=== PATIENT | male | born 2000 | race Two or more races ===

== ENCOUNTER 2021-03-09 14:16 | Emergency (ER) | payer MEDICAID ==
[~2021-03-09] VITALS: Ht 175.3 cm; Wt 65.8 kg
[2021-03-09] MEDS ORDERED: ONDANSETRON HCL 4 MG/2 ML VIAL IV ONE (14:30)
[2021-03-09] MEDS ORDERED: SODIUM CHLORIDE 0.9% 500 ML IV ONE (14:30)
[2021-03-09 14:59] LABS: Basophils # (auto) 0 10 ^3/uL (0-0.2); Basophils % (auto) 0.3 % (0.0-2.0); Eosinophils # (auto) 0 10 ^3/uL (0-0.8); Eosinophils % (auto) 0.1 % (0.0-7.0); Hematocrit 33.2 % (41.0-53.0); Hemoglobin 11.8 g/dL (13.5-17.5); Lymphocytes # (auto) 1.4 10 ^3/uL (0.4-5.4); Lymphocytes % (auto) 19.8 % (10.0-50.0); Mean Corpuscular Hemoglobin 32.2 pg (28.0-32.0); Mean Corpuscular Hgb Conc. 35.4 g/dL (32.0-36.0); Mean Corpuscular Volume 91.1 fL (80.0-100.0); Monocytes # (auto) 0.4 10 ^3/uL (0-1.3); Monocytes % (auto) 5.1 % (0.0-12.0); Neutrophils # (auto) 5.4 10 ^3/uL (1.6-8.6); Neutrophils % (auto) 74.7 % (37.0-80.0); Red Blood Cells 3.65 10^6/uL (4.5-5.90); White Blood Cell 7.2 10^3/uL (4.4-10.8)
[2021-03-09 15:17] LABS: Albumin 3.2 g/dL (3.4-5.0); Calcium 8.3 mg/dL (8.5-10.1); Potassium 3.8 mmol/L (3.5-5.1)
[2021-03-09 15:20] LABS: BUN/Creatinine Ratio 26.5; Bilirubin, Total 0.2 mg/dL (0.2-1.0); Total Protein 7.4 g/dL (6.4-8.2)
[2021-03-10 17:00] VITALS: BP 97/65
== END 2021-03-10 16:32 | disposition home or self-care (01) ==
LOC: ER 14:16 → EDBD 14:16 → ER 03-10 16:32
DX: B34.9 Viral infection, unspecified (principal); R51.9 Headache, unspecified; Z20.822 Contact with and (suspected) exposure to COVID-19
CPT/HCPCS: 36415; 71045; 80053; 83735; 85025; 87426; 96361; 96374; 99285; J2405; J7040

== ENCOUNTER 2021-08-30 12:05 | Inpatient (IN) | payer MEDICAID ==
[~2021-08-30] VITALS: Ht 182.9 cm; Wt 72.0 kg
[2021-08-30] MEDS: BUDESONIDE (INHALATION) 180 MCG IH IN SCH (07:14)
[2021-08-30 13:51] LABS: Basophils # (auto) 0.1 10 ^3/uL (0-0.2); Basophils % (auto) 1.1 % (0.0-2.0); Eosinophils # (auto) 0 10 ^3/uL (0-0.8); Eosinophils % (auto) 0.3 % (0.0-7.0); Hematocrit 37.4 % (41.0-53.0); Hemoglobin 12.5 g/dL (13.5-17.5); Lymphocytes # (auto) 0.3 10 ^3/uL (0.4-5.4); Lymphocytes % (auto) 3.4 % (10.0-50.0); Mean Corpuscular Hemoglobin 31.2 pg (28.0-32.0); Mean Corpuscular Hgb Conc. 33.4 g/dL (32.0-36.0); Mean Corpuscular Volume 93.5 fL (80.0-100.0); Monocytes # (auto) 0.8 10 ^3/uL (0-1.3); Monocytes % (auto) 9.5 % (0.0-12.0); Neutrophils # (auto) 7.5 10 ^3/uL (1.6-8.6); Neutrophils % (auto) 85.7 % (37.0-80.0); Red Cell Distribution Width 12.6 % (11.8-14.3); White Blood Cell 8.8 10^3/uL (4.4-10.8)
[2021-08-30 14:17] LABS: Albumin 3.7 g/dL (3.4-5.0); Calcium 9.2 mg/dL (8.5-10.1); Potassium 4.2 mmol/L (3.5-5.1)
[2021-08-30 14:27] LABS: BUN/Creatinine Ratio 15.7; Bilirubin, Total 0.2 mg/dL (0.2-1.0); Total Protein 8.4 g/dL (6.4-8.2)
[2021-08-30] MEDS ORDERED: MORPHINE SULFATE INJECTION 2 MG/ML SYRG IV PRN ×3 (17:45→20:45)
[2021-08-30] MEDS ORDERED: NITROGLYCERIN 0.4 MG SL TAB SL PRN ×2 (17:45→20:45)
[2021-08-30] MEDS ORDERED: AZITHROMYCIN 500MG/ 250ML 250 ML IV ONE (18:45)
[2021-08-30] MEDS ORDERED: cefTRIAXone 1GM/50ML D5W 50 ML IV ONE (18:45)
[2021-08-30] MEDS ORDERED: SODIUM CHLORIDE 0.9% 1,000 ML IV ONE ×2 (18:45)
[2021-08-30] MEDS ORDERED: HYDROcodone-ACET 5/325MG TAB PO PRN (20:45)
[2021-08-30] MEDS ORDERED: DOCUSATE SOD 100 MG CAP PO PRN (20:45)
[2021-08-30] MEDS ORDERED: ALBUTEROL SULF HFA 90MCG INH 200DOSE IN PRN (20:45)
[2021-08-30] MEDS ORDERED: FAMOTIDINE (10MG/ML) 2ML VL IV ONE (20:45)
[2021-08-30] MEDS ORDERED: Jevity 1.2 Cal/Fiber 1 Liter GT SCH (20:45)
[2021-08-30] MEDS ORDERED: ACETAMINOPHEN 500 MG TAB PO PRN (20:45)
[2021-08-30] MEDS ORDERED: ONDANSETRON HCL 4 MG/2 ML VIAL IV PRN (20:45)
[2021-08-30] MEDS ORDERED: LORazepam 0.5 MG TAB PO PRN (20:45)
[2021-08-30] MEDS ORDERED: ALUM & MAG HYDROX-SIMETH LIQ(MAALOX) 30 ML PO PRN (20:45)
[2021-08-30] MEDS ORDERED: SODIUM CHLORIDE 0.9% 1,000 ML IV SCH (21:00)
[2021-08-30] MEDS: ENOXAPARIN SOD 40 MG/0.4 ML SYRINGE SC SCH (22:13)
[2021-08-30 22:50] LABS: Albumin 3.3 g/dL (3.4-5.0); Calcium 8.1 mg/dL (8.5-10.1); Magnesium 2.1 mg/dL (1.6-2.6); Potassium 3.4 mmol/L (3.5-5.1)
[2021-08-30 22:56] LABS: BUN/Creatinine Ratio 15.5; Bilirubin, Total 0.2 mg/dL (0.2-1.0); CRP High Sensitivity 0.93 mg/dL (< 0.3); Total Protein 7.5 g/dL (6.4-8.2)
[2021-08-30 23:02] LABS: Thyroid Stimulating Hormone 0.52 uIU/mL (0.358-3.74)
[2021-08-30 23:06] LABS: Cholesterol 143 mg/dL (< 200)
[2021-08-30 23:09] LABS: HDL Cholesterol 50 mg/dL (40-59); LDL Cholesterol 81 mg/dL (< 100); Triglycerides 59 mg/dL (< 150)
[2021-08-30 23:15] VITALS: BP 119/71
[2021-08-30 23:52] LABS: Basophils # (auto) 0 10 ^3/uL (0-0.2); Basophils % (auto) 0.3 % (0.0-2.0); Eosinophils # (auto) 0 10 ^3/uL (0-0.8); Hematocrit 32.7 % (41.0-53.0); Lymphocytes # (auto) 0.9 10 ^3/uL (0.4-5.4); Lymphocytes % (auto) 11.6 % (10.0-50.0); Mean Corpuscular Hemoglobin 31.2 pg (28.0-32.0); Mean Corpuscular Hgb Conc. 33.6 g/dL (32.0-36.0); Monocytes % (auto) 12.7 % (0.0-12.0); Neutrophils # (auto) 5.7 10 ^3/uL (1.6-8.6); Neutrophils % (auto) 75.4 % (37.0-80.0); Nucleated Red Blood Cells % 0.1 %; Red Blood Cells 3.52 10^6/uL (4.5-5.90); White Blood Cell 7.6 10^3/uL (4.4-10.8)
[2021-08-31] MEDS ORDERED: DANT25CA4 PO (00:02)
[2021-08-31] MEDS ORDERED: POTA-180 PO (00:02)
[2021-08-31] MEDS ORDERED: DOCU100T15 PO (00:02)
[2021-08-31] MEDS ORDERED: ISAV1CAP2 PO (00:02)
[2021-08-31] MEDS ORDERED: FLUO20TA34 PO (00:02)
[2021-08-31] MEDS ORDERED: FAMO-12 PO (00:02)
[2021-08-31] MEDS: DOXYCYCLINE 100MG/250ML 250 ML IV SCH ×3 (02:09→22:00)
[2021-08-31 02:38] LABS: Amphetamine Screen, Urine NEGATIVE (NEGATIVE); Barbiturate Scree,Urine NEGATIVE (NEGATIVE); Benzodiazephine Screen, Urine NEGATIVE (NEGATIVE); Cannabinoid Screen, Urine NEGATIVE (NEGATIVE); Cocaine Screen, Urine NEGATIVE (NEGATIVE); Opiate Scree,Urine NEGATIVE (NEGATIVE); Phencyclidine Screen, Urine NEGATIVE (NEGATIVE)
[2021-08-31 02:47] LABS: Urine Bacteria NONE SEEN /hpf (None Seen); Urine Blood Negative /uL (Negative); Urine Specific Gravity 1.017 (1.001-1.035); Urine WBC <1 /hpf (0 - 3)
[2021-08-31 05:00] VITALS: BP 109/63
[2021-08-31] MEDS: BUDESONIDE (INHALATION) 180 MCG IH IN SCH ×2 (07:14→22:00)
[2021-08-31 07:38] LABS: Basophils # (auto) 0 10 ^3/uL (0-0.2); Basophils % (auto) 0.3 % (0.0-2.0); Eosinophils # (auto) 0 10 ^3/uL (0-0.8); Hematocrit 33.3 % (41.0-53.0); Hemoglobin 11.2 g/dL (13.5-17.5); Lymphocytes # (auto) 1.1 10 ^3/uL (0.4-5.4); Mean Corpuscular Hemoglobin 31.3 pg (28.0-32.0); Mean Corpuscular Hgb Conc. 33.5 g/dL (32.0-36.0); Mean Corpuscular Volume 93.3 fL (80.0-100.0); Monocytes # (auto) 0.8 10 ^3/uL (0-1.3); Monocytes % (auto) 12.9 % (0.0-12.0); Neutrophils # (auto) 4.5 10 ^3/uL (1.6-8.6); Neutrophils % (auto) 69.8 % (37.0-80.0); Nucleated Red Blood Cells % 0.1 %; Red Blood Cells 3.57 10^6/uL (4.5-5.90); Red Cell Distribution Width 12.8 % (11.8-14.3); White Blood Cell 6.5 10^3/uL (4.4-10.8)
[2021-08-31 07:55] LABS: INR 1.08 (0.9-1.15); Partial Thromboplastin Time 33.4 sec (23.6-33.0)
[2021-08-31 08:29] LABS: Potassium 3.4 mmol/L (3.5-5.1)
[2021-08-31 08:30] VITALS: BP 112/77
[2021-08-31 08:39] LABS: Albumin 3.3 g/dL (3.4-5.0); BUN/Creatinine Ratio 10.1; Bilirubin, Total 0.2 mg/dL (0.2-1.0); Calcium 8.5 mg/dL (8.5-10.1); Magnesium 2.5 mg/dL (1.6-2.6); Phosphorus 2.7 mg/dL (2.5-4.90); Total Protein 7.3 g/dL (6.4-8.2)
[2021-08-31] MEDS: ENOXAPARIN SOD 40 MG/0.4 ML SYRINGE SC SCH ×2 (10:16→23:17)
[2021-08-31] MEDS: CHOLECALCIFEROL (VITD3) 2,000 UNIT CAP/TAB PO SCH (10:16)
[2021-08-31] MEDS: IVERMECTIN 3 MG TAB PO SCH (10:16)
[2021-08-31] MEDS: ASCORBIC ACID 1,000 MG TAB PO SCH (10:16)
[2021-08-31] MEDS: ZINC SULFATE 220mg CAP or TAB PO SCH (10:16)
[2021-08-31] MEDS: DexAMETHasone SOD PHOS 10MG/1ML VIAL INJ IV SCH (10:17)
[2021-08-31] MEDS: FAMOTIDINE (10MG/ML) 2ML VL IV SCH ×2 (10:17→22:00)
[2021-08-31 13:00] VITALS: BP 136/77
[2021-08-31] MEDS ORDERED: ZINC220T6 PO (13:37)
[2021-08-31] MEDS ORDERED: CHOL20007 PO (13:37)
[2021-08-31] MEDS ORDERED: ALBUAER3 IN (13:37)
[2021-08-31] MEDS ORDERED: ASCO10003 PO (13:41)
[2021-08-31] MEDS ORDERED: DEX4T PO (13:41)
[2021-08-31] MEDS ORDERED: ASPI-378 PO (13:41)
[2021-08-31] MEDS ORDERED: DOXY-286 PO (13:41)
[2021-08-31] MEDS ORDERED: IVER3TAB PO (13:41)
[2021-08-31] MEDS ORDERED: POTASSIUM CHL 20 Meq TABLET PO ONE (13:45)
[2021-08-31] MEDS ORDERED: ERGOCALCIFEROL 50,000 UNIT(1.25MG) CAP PO ONE (13:45)
[2021-08-31 22:31] VITALS: BP 106/72
[2021-09-01 05:22] VITALS: BP 91/61
[2021-09-01] MEDS: BUDESONIDE (INHALATION) 180 MCG IH IN SCH (09:32)
[2021-09-01] MEDS: FAMOTIDINE (10MG/ML) 2ML VL IV SCH (10:00)
[2021-09-01] MEDS: DexAMETHasone SOD PHOS 10MG/1ML VIAL INJ IV SCH (10:00)
[2021-09-01] MEDS: DOXYCYCLINE 100MG/250ML 250 ML IV SCH (10:00)
[2021-09-01] MEDS: CHOLECALCIFEROL (VITD3) 2,000 UNIT CAP/TAB PO SCH (11:17)
[2021-09-01] MEDS: ZINC SULFATE 220mg CAP or TAB PO SCH (11:17)
[2021-09-01] MEDS: ASCORBIC ACID 1,000 MG TAB PO SCH (11:17)
[2021-09-01] MEDS: IVERMECTIN 3 MG TAB PO SCH (11:17)
[2021-09-01] MEDS: ENOXAPARIN SOD 40 MG/0.4 ML SYRINGE SC SCH (11:18)
== END 2021-09-01 14:38 | disposition home or self-care (01) | DRG 137 ==
LOC: EDBD 12:05 → ER 12:05 → EDUNIT# 12:05 → TELE 17:32 → TELE-WESTW 23:10
PROVIDERS: ADMIT Hospitalist; ATTEND Internal Medicine
DX: U07.1 COVID-19 (principal); D89.839 Cytokine release syndrome, grade unspecified; Z87.820 Personal history of traumatic brain injury; E55.9 Vitamin D deficiency, unspecified; E87.6 Hypokalemia; Z93.1 Gastrostomy status; Z68.21 Body mass index [BMI] 21.0-21.9, adult
CPT/HCPCS: 36415; 70450; 71045; 74176; 80053; 80061; 80307; 81001; 82306; 82728; 83036; 83605; 83615; 83735; 83880; 84100; 84443; 84484; 85025; 85379; 85610; 85730; 86141; 87040; 87086; 87426; 93005; 93970; 96361; 96365; 96375; G0378; J0696; J1100; J3490